=== PATIENT | female | born 1975 | race African-American/Black ===

== ENCOUNTER 2024-02-12 12:17 | Inpatient (IN) | payer OTHER ==
[~2024-02-12] VITALS: Ht 167.6 cm; Wt 64.4 kg
[2024-02-12 12:58] LABS: CALCIUM 9.3 mg/dL (8.5-10.1); CARBON DIOXIDE 25 mmol/L (21-32); CHLORIDE 106 mmol/L (98-107); CREATININE 0.5 mg/dL (0.6-1.3); GLUCOSE 81 mg/dL (74-106); POTASSIUM 3.8 mmol/L (3.5-5.1); SODIUM SERUM 140 mmol/L (136-145); UREA NITROGEN, BLOOD 10 mg/dL (7-18)
[2024-02-12] MEDS ORDERED: INFL100V (13:00)
[2024-02-12 13:07] LABS: ALANINE AMINOTRANSFERASE 140 U/L (14-59); ALBUMIN 2.9 g/dL (3.4-5.0); ALKALINE PHOSPHATASE 211 U/L (50-136); ASPARTATE AMINOTRANSFERASE 149 U/L (15-37); BILIRUBIN,DIRECT 0.2 mg/dL (0.0-0.2); BILIRUBIN,TOTAL 0.5 mg/dL (0.2-1.0); TOTAL PROTEIN, SERUM 8.4 g/dL (6.4-8.2)
[2024-02-12 13:15] LABS: ACETAMINOPHEN < 2.0 ug/mL (10-30)
[2024-02-12 13:17] LABS: ETHANOL < 3 MG/DL (0-10)
[2024-02-12] MEDS: ONDANSETRON 4 MG/2 ML VIAL IV ONE (13:18)
[2024-02-12 13:19] LABS: AMMONIA 23 umol/L (11-32)
[2024-02-12] MEDS: MORPHINE SULFATE 4 MG/1 ML DISP.SYRIN IV ONE (13:20)
[2024-02-12 13:28] LABS: *AMPHETAMINE, URINE NEGATIVE (NEGATIVE); *BARBITURATE, URINE NEGATIVE (NEGATIVE); *BENZODIAZEPINE, URINE NEGATIVE (NEGATIVE); *CANNABINOID, URINE NEGATIVE (NEGATIVE); *COCCAINE, URINE NEGATIVE (NEGATIVE); *OPIATE, URINE NEGATIVE (NEGATIVE); *PHENCYCLIDINE SCREEN,URINE NEGATIVE (NEGATIVE)
[2024-02-12] MEDS ORDERED: ONDANSETRON 4 MG/2 ML VIAL ONE (13:28)
[2024-02-12] MEDS ORDERED: MORPHINE SULFATE 4 MG/1 ML DISP.SYRIN ONE (13:29)
[2024-02-12 13:34] LABS: BASOPHILS % (AUTO) 0.3 % (0.0-2.0); DIFFERENTIAL COMMENT 0; EOSINOPHILS % (AUTO) 0.1 % (0.0-7.0); HEMATOCRIT 32.5 % (31.2-41.9); HEMOGLOBIN 10.1 g/dL (10.9-14.3); LYMPHOCYTES % (AUTO) 37.4 % (20.5-51.5); MEAN CORPUSCULAR HEMOGLOBIN 25.4 uug (24.7-32.8); MEAN CORPUSCULAR HGB CONC 31 g/dL (32.3-35.6); MEAN CORPUSCULAR VOLUME 81.3 fL (75.5-95.3); MONOCYTES # (AUTO) 0.5 K/uL (0.1-1.30); MONOCYTES % (AUTO) 17.6 % (0.0-11.0); NEUTROPHILS # (AUTO) 1.2 K/uL (1.8-8.9); NEUTROPHILS % (AUTO) 44.6 % (38.5-71.5); PLATELET COUNT (AUTO) 246 K/uL (179-408); RED CELL DISTRIBUTION WIDTH 15.5 % (12.3-17.7); WHITE BLOOD COUNT (AUTO) 2.7 K/uL (3.8-11.8)
[2024-02-12 13:47] LABS: *BILIRUBIN,URIN NEGATIVE (NEGATIVE); *BLOOD, URINE NEGATIVE (NEGATIVE); *COLOR,URINE YELLOW (YELLOW); *KETONES,URINE NEGATIVE (NEGATIVE); *PROTEIN,URINE 1+ (NEGATIVE); LEUKOCYTE ESTERASE ,URINE TRACE (NEGATIVE); NITRITE, URINE NEGATIVE (NEGATIVE); PH,URINE 6.5 (5.0-8.0); UGLUCOSE NEGATIVE (NEGATIVE)
[2024-02-12 13:51] LABS: *CLARITY,URINE HAZY (CLEAR)
[2024-02-12 14:13] LABS: FENTANYL, URINE NEGATIVE (NEGATIVE)
[2024-02-12] MEDS ORDERED: ASPI81TA31 PO (14:41)
[2024-02-12] MEDS ORDERED: DOCU-141 PO (14:41)
[2024-02-12] MEDS ORDERED: ESCI5TAB PO (14:43)
[2024-02-12] MEDS ORDERED: FOLI1TAB94 PO (14:44)
[2024-02-12] MEDS ORDERED: ERGO500040 PO (14:46)
[2024-02-12] MEDS ORDERED: PANT40TA2 PO (14:48)
[2024-02-12] MEDS ORDERED: ATOR80TA PO (14:49)
[2024-02-12] MEDS ORDERED: NALO4SPR NS (14:53)
[2024-02-12] MEDS ORDERED: TRAZ-182 PO (14:53)
[2024-02-12] MEDS ORDERED: MAGN400O6 PO (14:54)
[2024-02-12] MEDS ORDERED: TRAM50TA2 PO (14:56)
[2024-02-12] MEDS ORDERED: ACET-3117 PO (14:57)
[2024-02-12] MEDS ORDERED: HYDR-3972 PO (15:01)
[2024-02-12] MEDS: IV NORMAL SALINE 1000 ML BAG IV ONE ×2 (15:15→15:51)
[2024-02-12] MEDS ORDERED: levETIRAcetam 500 MG/5 ML VIAL IV ONE (16:18)
[2024-02-12 16:21] LABS: BACTERIA,URINE MANY /HPF (NONE SEEN); RBC,URINE 0-3 /HPF (0-3); SQUAMOUS EPITHELIAL CELL,UR MODERATE /HPF (NONE SEEN)
[2024-02-12 16:22] LABS: CALCIUM OXALATE CRYSTALS,UR MODERATE /HPF (NONE SEEN); MUCUS,URINE MODERATE /LPF (0-FEW)
[2024-02-12] MEDS: levETIRAcetam IV 1,000 MG in IV DEXTROSE 5% 100 ML IV ONE (16:30)
[2024-02-12] MEDS ORDERED: MAGNESIUM HYDROXIDE 30 ML LIQUID UDC PO PRN ×2 (16:45)
[2024-02-12] MEDS ORDERED: ACETAMINOPHEN 325 MG TABLET PO PRN (16:45)
[2024-02-12] MEDS ORDERED: ONDANSETRON 4 MG/2 ML VIAL IV PRN (16:45)
[2024-02-12] MEDS ORDERED: REMEDY ESSENTIAL ZINC PASTE 113 GM TP PRN (16:45)
[2024-02-12 17:04] LABS: ANISOCYTOSIS 1+; HYPOCHROMASIA 1+; LYMPHOCYTES % (MANUAL) 37 % (20-40); MONOCYTES % (MANUAL) 14 % (2-10); NEUTROPHILS % (MANUAL) 49 % (42-75); PLATELET ESTIMATE ADEQUATE
[2024-02-12 18:00] VITALS: BP 109/74; TEMP 97.7; O2SAT 100
[2024-02-12] MEDS: DOCUSATE SODIUM 100 MG CAPSULE PO SCH (18:32)
[2024-02-12] MEDS: HYDROCODONE/APAP 5-325MG TABLET PO PRN (18:32)
[2024-02-12 20:50] VITALS: BP 95/59; TEMP 97.9; O2SAT 99
[2024-02-12] MEDS: levETIRAcetam 250 MG TABLET PO SCH (20:52)
[2024-02-12] MEDS: TRAZODONE 50 MG TABLET PO SCH (20:52)
[2024-02-13 00:27] VITALS: BP 91/52; TEMP 97.8; O2SAT 97
[2024-02-13 04:20] VITALS: BP 92/53; TEMP 97.7; O2SAT 98
[2024-02-13] MEDS: PANTOPRAZOLE SODIUM 40 MG TABLET.DR PO SCH (06:40)
[2024-02-13 07:04] LABS: BASOPHILS % (AUTO) 0.7 % (0.0-2.0); EOSINOPHILS % (AUTO) 0.8 % (0.0-7.0); HEMATOCRIT 31.9 % (31.2-41.9); HEMOGLOBIN 10.1 g/dL (10.9-14.3); LYMPHOCYTES # (AUTO) 0.9 K/uL (0.8-4.8); MEAN CORPUSCULAR HEMOGLOBIN 25.9 uug (24.7-32.8); MEAN CORPUSCULAR HGB CONC 32 g/dL (32.3-35.6); MEAN CORPUSCULAR VOLUME 81.9 fL (75.5-95.3); MONOCYTES # (AUTO) 0.3 K/uL (0.1-1.30); MONOCYTES % (AUTO) 20.1 % (0.0-11.0); NEUTROPHILS # (AUTO) 0.3 K/uL (1.8-8.9); NEUTROPHILS % (AUTO) 20.4 % (38.5-71.5); PLATELET COUNT (AUTO) 234 K/uL (179-408); RED BLOOD CELL COUNT(AUTO) 3.89 MIL/uL (3.63-4.92)
[2024-02-13 07:16] LABS: CALCIUM 8.5 mg/dL (8.5-10.1); CARBON DIOXIDE 24 mmol/L (21-32); CHLORIDE 107 mmol/L (98-107); CREATININE 0.5 mg/dL (0.6-1.3); GLUCOSE 83 mg/dL (74-106); MAGNESIUM 1.8 mg/dL (1.8-2.4); PHOSPHOROUS 4.3 mg/dL (2.5-4.9); POTASSIUM 3.7 mmol/L (3.5-5.1); SODIUM SERUM 137 mmol/L (136-145); UREA NITROGEN, BLOOD 4 mg/dL (7-18)
[2024-02-13 07:35] VITALS: BP 92/60; TEMP 97.8; O2SAT 100
[2024-02-13 08:13] LABS: DIFFERENTIAL COMMENT 1; WHITE BLOOD COUNT (AUTO) 1.6 K/uL (3.8-11.8)
[2024-02-13] MEDS: ESCITALOPRAM OXALATE 10 MG TABLET PO SCH (08:41)
[2024-02-13] MEDS: ASPIRIN 81 MG TAB.CHEW PO SCH (08:41)
[2024-02-13] MEDS: levETIRAcetam 500 MG TABLET PO SCH (08:41)
[2024-02-13] MEDS ORDERED: Medication Not On Formulary EA (Escitalopram Oxalate (Lexapro) 5 MG) PO SCH (09:00)
[2024-02-13] MEDS ORDERED: LEVE500T9 PO (09:21)
[2024-02-13] MEDS: TRAMADOL HCL 50 MG TABLET PO PRN (11:06)
[2024-02-13 12:00] VITALS: BP 109/67; TEMP 97; O2SAT 98
[2024-02-13 15:07] LABS: BAND % (MANUAL) 3 % (0-10); EOSINOPHILS % (MANUAL) 1 % (0-8); LYMPHOCYTES % (MANUAL) 56 % (20-40); MONOCYTES % (MANUAL) 21 % (2-10); NEUTROPHILS % (MANUAL) 19 % (42-75)
[2024-02-13 15:08] LABS: ANISOCYTOSIS 1+; HYPOCHROMASIA 1+; PLATELET ESTIMATE ADEQUATE
[2024-02-13 16:00] VITALS: BP 110/64; TEMP 97; O2SAT 97
== END 2024-02-13 14:45 | DRG 53 ==
LOC: ER 12:20 → TELE3 17:21
PROVIDERS: ADMIT Internal Medicine; ATTEND Internal Medicine
DX: G40.909 Epilepsy, unspecified, not intractable, without status epilepticus (principal); I69.351 Hemiplegia and hemiparesis following cerebral infarction affecting right dominant side; M32.9 Systemic lupus erythematosus, unspecified; G93.89 Other specified disorders of brain; M24.542 Contracture, left hand; G89.4 Chronic pain syndrome; E78.5 Hyperlipidemia, unspecified
CPT/HCPCS: 36415; 70030-TC; 70450; 71045; 73020; 73560; 73600; 83605; 83735; 84100; 84484; 85025; 85730; 87040; 93005; A4663; G0378; G0480; J1953; J2270; J2405